=== PATIENT | female | born 1970 | race Hispanic/Latino ===

== ENCOUNTER 2018-03-22 06:44 | Day surgery (SDC) | payer SELFPAY ==
[~2018-03-22 06:44] MED LIST: AMPICILLIN500 MG PO; CIPROFLOXACN500 MG PO; LORTAB 5/3255 MG PO; NAPROXEN250 MG PO; SMZ-TMP DS1 TAB PO; TAMSULOSIN HCL0.4 MG PO
[2018-03-22] MEDS ORDERED: NORCO1 TA1 PO (10:47)
[2018-03-22] MEDS ORDERED: DITROPAN PO (10:47)
[2018-03-22] MEDS ORDERED: COLACE100 MG PO (10:47)
[2018-03-22] MEDS ORDERED: TAMSULOSIN0.4 MG PO (10:47)
[2018-03-22] MEDS ORDERED: TORADOL PO (10:47)
[2018-03-22] MEDS ORDERED: KEFLEX500 MG PO (10:47)
[2018-03-22 11:09] VITALS: BP 94/55
== END 2018-03-22 11:40 | disposition home or self-care (01) | DRG 661 ==
LOC: ORM 06:44
PROVIDERS: ATTEND Urology
PROC: 0TC18ZZ Extirpation of Matter from Left Kidney, Via Natural or Artificial Opening Endoscopic (ICD-10-PCS; principal; 2018-03-22)
PROC: 0T778DZ Dilation of Left Ureter with Intraluminal Device, Via Natural or Artificial Opening Endoscopic (ICD-10-PCS; 2018-03-22)
DX: N20.0 Calculus of kidney (principal); Z87.440 Personal history of urinary (tract) infections
CPT/HCPCS: J2710; Q9967